=== PATIENT | female | born 1980 | race African-American/Black ===

== ENCOUNTER 2017-10-04 12:42 | Emergency (ER) | payer OTHER, MEDICAID ==
[~2017-10-04] VITALS: Ht 157.5 cm; Wt 149.0 kg
[~2017-10-04 12:42] MED LIST: ASOU BOTHEYE; P20 PO; PRED1DRO LEFTEYE
[2017-10-04] MEDS ORDERED: DEXAMETHASONE 10 MG/ML VIAL IM ONE (16:15)
[2017-10-04] MEDS ORDERED: LORAZEPAM 1MG TABLET PO ONE (16:15)
[2017-10-04] MEDS ORDERED: KETOROLAC 60MG/2ML VIAL IM ONE (16:15)
[2017-10-04 19:17] VITALS: BP 155/86
== END 2017-10-04 19:17 | disposition home or self-care (01) ==
LOC: ER 16:12
DX: M25.512 Pain in left shoulder (principal); M54.5 Low back pain; Z98.51 Tubal ligation status; V43.52XA Car driver injured in collision with other type car in traffic accident, initial encounter; Y93.89 Activity, other specified; Y92.488 Other paved roadways as the place of occurrence of the external cause
CPT/HCPCS: 72100; 73030; 96372; 99284; J1100; J1885